=== PATIENT | female | born 1970 | race Caucasian/White ===

== ENCOUNTER 2016-04-29 19:18 | Emergency (ER) | payer OTHER ==
[~2016-04-29 19:18] MED LIST: ALBUTEROL17 GM INH; ANTIBIOTIC; BACTRIM DS TABL1 TA1 PO; BACTRIM DS TABL1 TA2 PO; CIPRO PO; FLEXERIL PO; FLONASE 0.05% N16 G1; KEFLEX PO; KETOPROFEN PO; LORTAB 5/500 TA1 TA1 PO; NO MEDICATIONS; PREDNISONE PO; PREDNISONE5 M1 PO; PROVERA5 MG PO; ROBAXIN500 MG PO; SUDAFED PO; TESSALON200 MG PO; TYLENOL COLD MU PO; ULTRAM PO; VICODIN 5/1 TAB 5/50 PO; VOLTAREN75 MG PO; ZITHROMAX PO; ZITHROMAX1 G/PKT PO; ZYRTEC-D TABLE1 EACH PO
== END 2016-04-29 20:26 | disposition home or self-care (01) ==
LOC: SED 19:18
DX: L29.0 Pruritus ani (principal); Z88.1 Allergy status to other antibiotic agents; Z88.5 Allergy status to narcotic agent; F17.210 Nicotine dependence, cigarettes, uncomplicated
CPT/HCPCS: 99282

== ENCOUNTER 2016-07-21 21:26 | Emergency (ER) | payer OTHER ==
--- NOTE | ~2016-07-21 | EKG ---
PATIENT: KEVYN WADDELL UNIT #: [id number] Ventricular Rate: 91 BPM Atrial Rate: 91 BPM P-R Interval: 168 ms QRS Duration: 88 ms Q-T Interval: 358 ms QTC Calculation(Bezet): 440 ms P [place]: 63 degrees Calculated R [place]: 65 degrees Calculated T [place]: 53 degrees Diagnosis Line: Normal sinus rhythm Diagnosis Line: Normal ECG Diagnosis Line: No previous ECGs available Diagnosis Line: Confirmed by REJI WARREN MD ([id number]) on Diagnosis Line: 07/28/2016 8:28:56 AM INTERPRETING MD: BRIANA REID
--- NOTE | ~2016-07-21 | CR72 ---
[facility]. [facility] A Service of [facility] RADIOLOGY TEXT RESULTS PATIENT: KEVYN WADDELL LOCATION: SED : 74 UNIT #: [id number] AGE: [address]: Richard Figueroa MD SEX: F ORDER DR: [id number] [place] [id number] E MR#: [id number] Acc #: [id number] NAME: KEVYN WADDELL : 1970 SEX: F STUDY DATE/TIME: 07/21/2016 21:58 UNIT: SED ROOM: STUDY DESCRIPTION: CR Chest Single View Portable Attending Physician: Richard Figueroa M.D. Ordering Physician: Richard Figueroa M.D. Primary Care Physician: [facility] MEDICAL IMAGING REPORT This report is preliminary unless electronic signature is present. EXAM Single view chest INDICATION Altered level of consciousness. Fever, dizziness and shortness of air. FINDINGS Single portable AP view of the chest compared to 09/18/2014 and June 21, 2012. Heart and mediastinal contours are unchanged. No new pulmonary opacities. There are some chronic interstitial opacities in both lung bases. These are unchanged. No pleural effusion. IMPRESSION No new findings. No significant change. Dictated by... Abel Kyle M.D. THIS IS AN ELECTRONICALLY VERIFIED REPORT Abel Kyle M.D. at 07/22/2016 1:19 PM MARQUEZ/monico TD: 07/21/2016 22:39 JOB #: [id number] MEDICAL IMAGING REPORT Page 1 of 1
[2016-07-21] MEDS ORDERED: BACTRIM 400-801 EACH (21:38)
[2016-07-21 22:27] LABS: BASOPHIL# 0.1 X10e3 (0-0.3); BASOPHIL% 0.8 % (0-2.5); DIFF IND NO; EOSINOPHIL# 0.6 X10e3 (0-0.7); EOSINOPHIL% 3.6 % (0.0-7.0); LYMPHOCYTE# 3.9 X10e3 (1.0-3.5); LYMPHOCYTE% 23.3 % (17.0-45.0); MEAN CELL VOLUME 93.1 FL (83-96); MEAN CORPUSCULAR HEMOGLOBIN 31.7 PG (28-34); MONOCYTE# 0.9 X10e3 (0-1.0); MONOCYTE% 5.6 % (3.0-12.0); NEUTROPHIL# 11.1 X10e3 (1.5-7.1); NEUTROPHIL% 66.7 % (40-75); PLATELET COUNT 297 X10e3 (140-420); RED BLOOD COUNT 4.73 X10e (3.90-5.30); RED CELL DISTRIBUTION WIDTH 13.2 % (11.0-15.5); WHITE BLOOD COUNT 16.6 X10e3 (4.0-10.5)
[2016-07-21 22:36] LABS: URINE SOURCE CLEAN CATCH
[2016-07-21 22:38] LABS: URINE APPEARANCE CLEAR; URINE BILIRUBIN NEG (NEG); URINE BLOOD NEG (NEG); URINE COLOR YELLOW; URINE GLUCOSE NEG (NORM); URINE KETONE NEG (NEG); URINE LEUKOCYTE ESTERASE NEG (NEG); URINE NITRATE NEG (NEG); URINE PH 7.5 (5-8); URINE PROTEIN NEG (NEG)
[2016-07-21 22:39] LABS: MICRO INDICATED? NO
[2016-07-21 22:41] LABS: ALBUMIN SERUM 4.1 g/dL (3.5-5.0); BILIRUBIN,TOTAL 0.4 mg/dL (0.2-2.0); BUN/CREATININE RATIO 8.75; CALCIUM SERUM 9.1 mg/dL (8.4-10.2); CREATININE SERUM 0.8 mg/dL (0.6-1.4); GLOM FILT RATE Estimated 89.7 mL/min (>60); PROTEIN TOTAL SERUM 6.9 g/dL (6.0-8.3)
[2016-07-21 22:43] LABS: POC - CKMB <1.0 ng/mL (0.0-7.9); POC - TROPONIN <0.05 ng/mL (<=0.05)
== END 2016-07-21 23:27 | disposition home or self-care (01) ==
LOC: SED 21:26
DX: E86.0 Dehydration (principal); F17.200 Nicotine dependence, unspecified, uncomplicated; Z98.890 Other specified postprocedural states; Z88.0 Allergy status to penicillin; Z88.5 Allergy status to narcotic agent
CPT/HCPCS: 36415; 71010; 80053; 81003; 82553; 84443; 84484; 84703; 85025; 93005; 96360; 99284